=== PATIENT | male | born 1975 | race African-American/Black ===

== ENCOUNTER 2023-06-14 14:52 | Emergency (ER) | payer SELFPAY ==
[~2023-06-14] VITALS: Ht 182.9 cm; Wt 100.0 kg
[~2023-06-14 14:52] MED LIST: NO MEDS
[2023-06-14 15:26] VITALS: BP 133/70; PULSE 69; RESP 18; TEMP 97.9; O2SAT 98
== END 2023-06-14 16:31 | disposition left against medical advice (07) ==
LOC: ER 14:52
DX: S01.511A Laceration without foreign body of lip, initial encounter (principal); Z53.21 Procedure and treatment not carried out due to patient leaving prior to being seen by health care provider; X58.XXXA Exposure to other specified factors, initial encounter; Y93.89 Activity, other specified; Y92.89 Other specified places as the place of occurrence of the external cause; Y99.8 Other external cause status
CPT/HCPCS: 99281

== ENCOUNTER 2024-02-24 18:26 | Emergency (ER) | payer SELFPAY ==
[~2024-02-24] VITALS: Ht 182.9 cm; Wt 78.0 kg
[2024-02-24 18:28] VITALS: BP 119/83; PULSE 95; RESP 16; TEMP 98.3; O2SAT 100
== END 2024-02-24 18:45 | disposition left against medical advice (07) ==
LOC: ER 18:26
DX: R10.9 Unspecified abdominal pain (principal); Z53.21 Procedure and treatment not carried out due to patient leaving prior to being seen by health care provider